=== PATIENT | female | born 1975 | race African-American/Black ===

== ENCOUNTER 2021-10-05 11:17 | Inpatient (IN) | payer BC, OTHER ==
[2021-10-05] MEDS ORDERED: SODIUM CHLORIDE 1,000 ML IV SCH (11:30)
[2021-10-05] MEDS ORDERED: ACETAMINOPHEN 1000 MG/100 ML BAG IVPB ONE (12:45)
[2021-10-05] MEDS ORDERED: ACETAMINOPHEN INJECTION 100 ML IVPB ONE (13:02)
[2021-10-05 13:09] LABS: BASO % 0.3 % (0-2.0); EOS % 2.2 % (0-4.5); HEMATOCRIT 36.5 % (32.4-45.2); HEMOGLOBIN 12.3 GM/dL (10.7-15.3); MCH 29.1 pg (25.7-33.7); MCHC 33.8 g/dl (32.0-36.0); MEAN PLT VOLUME 7.9 fl (7.5-11.1); MONO % 6.4 % (3.8-10.2); NEUT % 72.1 % (42.8-82.8); PLATELET COUNT 279 10^3/uL (134-434); RBC 4.25 M/mm3 (3.60-5.2); RDW 14.5 % (11.6-15.6); WHITE BLOOD COUNT 7.1 K/mm3 (4.0-10.0)
[2021-10-05 13:21] LABS: ACTIVATED PTT 33.5 SECONDS (25.2-36.5); INR 1.02 (0.83-1.09); PROTHROMBIN TIME (PATIENT) 11.7 SEC (9.7-13.0)
[2021-10-05 13:28] LABS: CALCIUM 8.9 mg/dL (8.5-10.1)
[2021-10-05 13:30] LABS: BLOOD UREA NITROGEN 10.1 mg/dL (7-18)
[2021-10-05 13:31] LABS: ALBUMIN 3.5 g/dl (3.4-5.0)
[2021-10-05 13:33] LABS: CREATININE 0.7 mg/dL (0.55-1.3)
[2021-10-05 13:34] LABS: TOT PROT 7.3 g/dl (6.4-8.2)
[2021-10-05 13:35] LABS: BILIRUBIN,TOTAL 0.5 mg/dL (0.2-1)
[2021-10-05] MEDS ORDERED: ASPIRIN COATED 81 MG TABLET.EC PO SCH (14:45)
[2021-10-05] MEDS ORDERED: ENOXAPARIN NA (PORCINE) 40 MG/0.4 ML DISP.SYRIN SQ ONE (15:16)
[2021-10-05] MEDS: ENOXAPARIN NA (PORCINE) 40 MG/0.4 ML DISP.SYRIN SQ SCH (15:20)
[2021-10-05] MEDS ORDERED: CLOPIDOGREL BISULFATE 75 MG TABLET (FP) ONE (16:42)
[2021-10-05] MEDS: CLOPIDOGREL BISULFATE 75 MG TABLET (FP) PO SCH (16:45)
[2021-10-05] MEDS ORDERED: morphine CARPU-JECT 4 MG/1 ML DISP.SYRIN IVPUSH PRN (16:45)
[2021-10-05] MEDS ORDERED: ACETAMINOPHEN 1000 MG/100 ML BAG IVPB PRN (16:45)
[2021-10-05] MEDS: INSULIN SLIDING SCALE (NOVOLOG) 1 VIAL SQ SCH ×3 (16:50→22:05)
[2021-10-05 19:08] LABS: PH,URINE 6.5 (5.0-8.0); URINE APPEARANCE CLEAR; URINE BILIRUBIN NEGATIVE (NEGATIVE); URINE COLOR YELLOW; URINE GLUCOSE (UA) NEGATIVE (NEGATIVE); URINE KETONE NEGATIVE (NEGATIVE); URINE LEUK ESTERASE NEGATIVE (NEGATIVE); URINE NITRITE NEGATIVE (NEGATIVE); URINE PROTEIN NEGATIVE (NEGATIVE); URINE UROBILINOGEN 0.2 mg/dL (0.2-1.0)
[2021-10-05] MEDS: ROSUVASTATIN CA 20 MG TABLET PO SCH (23:06)
[2021-10-06] MEDS: INSULIN SLIDING SCALE (NOVOLOG) 1 VIAL SQ SCH ×3 (06:32→16:49)
[2021-10-06 07:13] LABS: BASO % 0.6 % (0-2.0); EOS % 2.5 % (0-4.5); HEMATOCRIT 35.9 % (32.4-45.2); HEMOGLOBIN 12.6 GM/dL (10.7-15.3); LYMPH % 37.4 % (8-40); MCH 29.7 pg (25.7-33.7); MCHC 34.9 g/dl (32.0-36.0); MEAN CELL VOLUME 85.1 fl (80-96); MEAN PLT VOLUME 7.6 fl (7.5-11.1); MONO % 8.5 % (3.8-10.2); PLATELET COUNT 274 10^3/uL (134-434); RBC 4.22 M/mm3 (3.60-5.2); RDW 14.2 % (11.6-15.6); WHITE BLOOD COUNT 5.5 K/mm3 (4.0-10.0)
[2021-10-06 07:18] LABS: INR 1.1 (0.83-1.09); PROTHROMBIN TIME (PATIENT) 12.7 SEC (9.7-13.0)
[2021-10-06 07:21] LABS: ACTIVATED PTT 31.3 SECONDS (25.2-36.5)
[2021-10-06 07:45] LABS: CALCIUM 8.8 mg/dL (8.5-10.1)
[2021-10-06 07:46] LABS: ALBUMIN 3.2 g/dl (3.4-5.0); BLOOD UREA NITROGEN 9.1 mg/dL (7-18); MAGNESIUM 2.1 mg/dL (1.8-2.4)
[2021-10-06 07:49] LABS: CREATININE 0.7 mg/dL (0.55-1.3); PHOSPHOROUS 4.1 mg/dL (2.5-4.9)
[2021-10-06 07:50] LABS: BILIRUBIN,TOTAL 0.6 mg/dL (0.2-1); TOT PROT 6.6 g/dl (6.4-8.2)
[2021-10-06] MEDS: ENOXAPARIN NA (PORCINE) 40 MG/0.4 ML DISP.SYRIN SQ SCH (09:27)
[2021-10-06] MEDS: amLODIPine BESYLATE 10 MG TABLET (FP) PO SCH (09:27)
[2021-10-06] MEDS: CLOPIDOGREL BISULFATE 75 MG TABLET (FP) PO SCH (09:27)
[2021-10-06] MEDS: ROSUVASTATIN CA 20 MG TABLET PO SCH (21:17)
[2021-10-07] MEDS: INSULIN SLIDING SCALE (NOVOLOG) 1 VIAL SQ SCH ×4 (06:34→21:35)
[2021-10-07] MEDS: ENOXAPARIN NA (PORCINE) 40 MG/0.4 ML DISP.SYRIN SQ SCH (09:04)
[2021-10-07] MEDS: amLODIPine BESYLATE 10 MG TABLET (FP) PO SCH (09:04)
[2021-10-07] MEDS: CLOPIDOGREL BISULFATE 75 MG TABLET (FP) PO SCH (09:04)
[2021-10-07] MEDS ORDERED: ACETAMINOPHEN 325 MG TABLET (FP) PO PRN (15:27)
[2021-10-07] MEDS: ROSUVASTATIN CA 20 MG TABLET PO SCH (21:36)
[2021-10-07] MEDS: oxyCODONE HCL 5 MG TABLET PO PRN (21:36)
[2021-10-08] MEDS: oxyCODONE HCL 5 MG TABLET PO PRN (05:59)
[2021-10-08] MEDS: INSULIN SLIDING SCALE (NOVOLOG) 1 VIAL SQ SCH ×4 (06:41→22:56)
[2021-10-08] MEDS: ENOXAPARIN NA (PORCINE) 40 MG/0.4 ML DISP.SYRIN SQ SCH (09:36)
[2021-10-08] MEDS: amLODIPine BESYLATE 10 MG TABLET (FP) PO SCH (09:36)
[2021-10-08] MEDS: VALSARTAN 40 MG TABLET PO SCH (09:39)
[2021-10-08] MEDS: ROSUVASTATIN CA 20 MG TABLET PO SCH (22:56)
[2021-10-09] MEDS: INSULIN SLIDING SCALE (NOVOLOG) 1 VIAL SQ SCH ×4 (06:53→21:28)
[2021-10-09 08:26] LABS: BASO % 0.7 % (0-2.0); EOS % 2.9 % (0-4.5); HEMATOCRIT 38.3 % (32.4-45.2); LYMPH % 37.4 % (8-40); MCHC 34.1 g/dl (32.0-36.0); MEAN CELL VOLUME 85.1 fl (80-96); MEAN PLT VOLUME 7.8 fl (7.5-11.1); PLATELET COUNT 285 10^3/uL (134-434); RBC 4.49 M/mm3 (3.60-5.2); RDW 14.2 % (11.6-15.6)
[2021-10-09 09:38] LABS: BLOOD UREA NITROGEN 11.6 mg/dL (7-18); CALCIUM 9.1 mg/dL (8.5-10.1); MAGNESIUM 2.3 mg/dL (1.8-2.4)
[2021-10-09 09:41] LABS: CREATININE 0.7 mg/dL (0.55-1.3); PHOSPHOROUS 3.6 mg/dL (2.5-4.9)
[2021-10-09 09:43] LABS: BILIRUBIN,TOTAL 0.6 mg/dL (0.2-1); TOT PROT 6.9 g/dl (6.4-8.2)
[2021-10-09 09:44] LABS: ALBUMIN 3.4 g/dl (3.4-5.0)
[2021-10-09] MEDS: amLODIPine BESYLATE 10 MG TABLET (FP) PO SCH (09:44)
[2021-10-09] MEDS: ENOXAPARIN NA (PORCINE) 40 MG/0.4 ML DISP.SYRIN SQ SCH ×2 (09:44→09:50)
[2021-10-09] MEDS: VALSARTAN 40 MG TABLET PO SCH (09:44)
[2021-10-09] MEDS: ROSUVASTATIN CA 20 MG TABLET PO SCH (21:26)
[2021-10-10] MEDS: INSULIN SLIDING SCALE (NOVOLOG) 1 VIAL SQ SCH ×5 (06:05→22:18)
[2021-10-10] MEDS: ENOXAPARIN NA (PORCINE) 40 MG/0.4 ML DISP.SYRIN SQ SCH (09:02)
[2021-10-10] MEDS: VALSARTAN 40 MG TABLET PO SCH (09:02)
[2021-10-10] MEDS: amLODIPine BESYLATE 10 MG TABLET (FP) PO SCH (09:03)
[2021-10-10] MEDS ORDERED: ACETAMINOPHEN 325 MG TABLET (FP) PO PRN (16:45)
[2021-10-10] MEDS: ROSUVASTATIN CA 20 MG TABLET PO SCH (22:18)
[2021-10-11] MEDS: INSULIN SLIDING SCALE (NOVOLOG) 1 VIAL SQ SCH ×4 (06:32→21:24)
[2021-10-11 08:25] LABS: BASO % 0.8 % (0-2.0); HEMATOCRIT 36.6 % (32.4-45.2); HEMOGLOBIN 12.4 GM/dL (10.7-15.3); LYMPH % 36.3 % (8-40); MCH 28.9 pg (25.7-33.7); MCHC 33.8 g/dl (32.0-36.0); MEAN CELL VOLUME 85.6 fl (80-96); MEAN PLT VOLUME 7.9 fl (7.5-11.1); MONO % 7.9 % (3.8-10.2); PLATELET COUNT 252 10^3/uL (134-434); RBC 4.27 M/mm3 (3.60-5.2); RDW 14.1 % (11.6-15.6); WHITE BLOOD COUNT 6.1 K/mm3 (4.0-10.0)
[2021-10-11 08:45] LABS: BLOOD UREA NITROGEN 12.5 mg/dL (7-18); CALCIUM 8.9 mg/dL (8.5-10.1)
[2021-10-11 08:50] LABS: CREATININE 0.8 mg/dL (0.55-1.3)
[2021-10-11] MEDS: amLODIPine BESYLATE 10 MG TABLET (FP) PO SCH (10:13)
[2021-10-11] MEDS: VALSARTAN 40 MG TABLET PO SCH (10:13)
[2021-10-11] MEDS: ENOXAPARIN NA (PORCINE) 40 MG/0.4 ML DISP.SYRIN SQ SCH (10:14)
[2021-10-11] MEDS ORDERED: INSULIN (NOVOLOG) ASPART 100 UNITS/ML 10ML VIAL ONE (16:01)
[2021-10-11] MEDS: ROSUVASTATIN CA 20 MG TABLET PO SCH (21:13)
[2021-10-12] MEDS: INSULIN SLIDING SCALE (NOVOLOG) 1 VIAL SQ SCH ×4 (06:08→22:15)
[2021-10-12 08:36] LABS: BASO % 0.6 % (0-2.0); EOS % 3.4 % (0-4.5); HEMATOCRIT 36.6 % (32.4-45.2); HEMOGLOBIN 12.8 GM/dL (10.7-15.3); LYMPH % 31.4 % (8-40); MCH 29.4 pg (25.7-33.7); MCHC 34.9 g/dl (32.0-36.0); MEAN CELL VOLUME 84.3 fl (80-96); MEAN PLT VOLUME 7.9 fl (7.5-11.1); MONO % 7.4 % (3.8-10.2); NEUT % 57.2 % (42.8-82.8); PLATELET COUNT 250 10^3/uL (134-434); RBC 4.35 M/mm3 (3.60-5.2); RDW 13.9 % (11.6-15.6); WHITE BLOOD COUNT 6.8 K/mm3 (4.0-10.0)
[2021-10-12 09:02] LABS: BLOOD UREA NITROGEN 11.6 mg/dL (7-18); CALCIUM 8.9 mg/dL (8.5-10.1)
[2021-10-12 09:06] LABS: CREATININE 0.7 mg/dL (0.55-1.3)
[2021-10-12] MEDS: VALSARTAN 40 MG TABLET PO SCH (09:41)
[2021-10-12] MEDS: amLODIPine BESYLATE 10 MG TABLET (FP) PO SCH (09:41)
[2021-10-12] MEDS: ENOXAPARIN NA (PORCINE) 40 MG/0.4 ML DISP.SYRIN SQ SCH (09:41)
[2021-10-12] MEDS ORDERED: INSULIN (NOVOLOG) ASPART 100 UNITS/ML 10ML VIAL ONE (12:20)
[2021-10-12 13:54] VITALS: BMI 33.5
[2021-10-12] MEDS: ROSUVASTATIN CA 20 MG TABLET PO SCH (22:11)
[2021-10-12] MEDS: HYDROCORTISONE 1% TOPICAL CREAM 30 GM TUBE TP SCH (22:14)
[2021-10-12] MEDS: CLOTRIMAZOLE/BETAMET DIPROP 15 GM TUBE TP SCH (22:14)
[2021-10-13] MEDS: INSULIN SLIDING SCALE (NOVOLOG) 1 VIAL SQ SCH ×4 (06:09→21:36)
[2021-10-13] MEDS ORDERED: ceFAZolin SODIUM 1 GM VIAL ONE ×2 (07:21→17:51)
[2021-10-13] MEDS ORDERED: THROMBIN (BOVINE) 20,000 UNIT VIAL TP ONE (07:21)
[2021-10-13] MEDS ORDERED: HYDROmorphone HCl 2 MG/ML VIAL ONE (07:48)
[2021-10-13] MEDS ORDERED: MIDAZOLAM HCL 2 MG/2 ML SINGLE DOSE VIAL ONE ×3 (07:49)
[2021-10-13] MEDS ORDERED: ROCURONIUM BROMIDE 50 MG/5 ML SYRINGE ONE (07:49)
[2021-10-13] MEDS ORDERED: PROPOFOL 20 ML ONE ×19 (07:49→10:55)
[2021-10-13] MEDS ORDERED: BACITRACIN 15 GM TUBE TOPICAL OINTMENT ONE (07:56)
[2021-10-13] MEDS ORDERED: SUCCINYLCHOLINE CHLORIDE 200 MG/10 ML SYRINGE ONE (07:58)
[2021-10-13] MEDS ORDERED: ceFAZolin SODIUM 1 GM VIAL IVPB ONE ×2 (08:38→09:28)
[2021-10-13] MEDS ORDERED: ACETAMINOPHEN INJECTION 100 ML IVPB ONE (08:49)
[2021-10-13] MEDS ORDERED: DEXMEDETOMIDINE HCL 200 MCG/2 ML IVPB ONE (08:49)
[2021-10-13] MEDS ORDERED: KETAMINE HCL 200 MG/20 ML VIAL ONE (08:52)
[2021-10-13] MEDS: VALSARTAN 40 MG TABLET PO SCH ×2 (09:04→18:01)
[2021-10-13] MEDS: amLODIPine BESYLATE 10 MG TABLET (FP) PO SCH ×2 (09:04→18:01)
[2021-10-13] MEDS: CLOTRIMAZOLE/BETAMET DIPROP 15 GM TUBE TP SCH ×2 (09:04→21:29)
[2021-10-13] MEDS ORDERED: THROMBIN (BOVINE) 5,000 UNIT VIAL TP ONE (09:21)
[2021-10-13] MEDS: HYDROCORTISONE 1% TOPICAL CREAM 30 GM TUBE TP SCH ×2 (09:33→21:28)
[2021-10-13] MEDS ORDERED: ONDANSETRON 4 MG/2 ML VIAL IVPUSH PRN ×2 (12:22→14:30)
[2021-10-13] MEDS ORDERED: LACTATED RINGERS SOLUTION 1,000 ML IV SCH (12:30)
[2021-10-13] MEDS ORDERED: ACETAMINOPHEN 325 MG TABLET (FP) PO PRN (14:30)
[2021-10-13] MEDS ORDERED: DEXTROSE 5%-WATER - 50 ML IVPB ONE (17:51)
[2021-10-13] MEDS: CEFAZOLIN 1 GM in DEXTROSE 5%-WATER - 1 GM/50 ML IVPB IVPB SCH (17:59)
[2021-10-13] MEDS ORDERED: CEFAZOLIN 1 GM in DEXTROSE 5%-WATER - 1 GM/50 ML IVPB IVPB SCH (18:00)
[2021-10-13] MEDS: LACTATED RINGERS SOLUTION 1,000 ML IV SCH (18:02)
[2021-10-13 18:13] LABS: BASO % 0.2 % (0-2.0); HEMATOCRIT 38.3 % (32.4-45.2); HEMOGLOBIN 13.1 GM/dL (10.7-15.3); LYMPH % 5.7 % (8-40); MCH 29.3 pg (25.7-33.7); MCHC 34.1 g/dl (32.0-36.0); MEAN CELL VOLUME 85.8 fl (80-96); MEAN PLT VOLUME 8.1 fl (7.5-11.1); NEUT % 93.1 % (42.8-82.8); PLATELET COUNT 251 10^3/uL (134-434); RBC 4.47 M/mm3 (3.60-5.2); WHITE BLOOD COUNT 9.8 K/mm3 (4.0-10.0)
[2021-10-13 18:29] LABS: CHLORIDE 106 mmol/L (98-107); SODIUM 138 mmol/L (136-145)
[2021-10-13 18:32] LABS: ANION GAP 7 MMOL/L (8-16); BLOOD UREA NITROGEN 15.1 mg/dL (7-18); CALCIUM 9.3 mg/dL (8.5-10.1); CO2 25 mmol/L (21-32); GLUCOSE,RANDOM 236 mg/dL (74-106)
[2021-10-13 18:36] LABS: CREATININE 0.9 mg/dL (0.55-1.3)
[2021-10-13 19:32] LABS: ANISOCYTOSIS 1+; MACROCYTOSIS 0; PLATELET ESTIMATE NORMAL
[2021-10-13] MEDS: ROSUVASTATIN CA 20 MG TABLET PO SCH (21:28)
[2021-10-14] MEDS ORDERED: DEXTROSE 5%-WATER - 50 ML IVPB ONE ×2 (01:31→09:18)
[2021-10-14] MEDS ORDERED: ceFAZolin SODIUM 1 GM VIAL ONE ×2 (01:31→09:18)
[2021-10-14] MEDS: LACTATED RINGERS SOLUTION 1,000 ML IV SCH ×3 (01:46→16:26)
[2021-10-14] MEDS: CEFAZOLIN 1 GM in DEXTROSE 5%-WATER - 1 GM/50 ML IVPB IVPB SCH ×2 (01:48→09:20)
[2021-10-14] MEDS: ACETAMINOPHEN 325 MG TABLET (FP) PO PRN ×3 (01:50→14:13)
[2021-10-14] MEDS: INSULIN SLIDING SCALE (NOVOLOG) 1 VIAL SQ SCH ×4 (06:02→21:18)
[2021-10-14 09:02] LABS: BASO % 0.4 % (0-2.0); EOS % 0.1 % (0-4.5); HEMATOCRIT 36.7 % (32.4-45.2); HEMOGLOBIN 12.3 GM/dL (10.7-15.3); LYMPH % 12.3 % (8-40); MCH 28.9 pg (25.7-33.7); MCHC 33.6 g/dl (32.0-36.0); MEAN CELL VOLUME 86.1 fl (80-96); MEAN PLT VOLUME 8.5 fl (7.5-11.1); MONO % 6.7 % (3.8-10.2); NEUT % 80.5 % (42.8-82.8); PLATELET COUNT 258 10^3/uL (134-434); RBC 4.26 M/mm3 (3.60-5.2); RDW 14.2 % (11.6-15.6); WHITE BLOOD COUNT 13.4 K/mm3 (4.0-10.0)
[2021-10-14] MEDS: amLODIPine BESYLATE 10 MG TABLET (FP) PO SCH (09:20)
[2021-10-14] MEDS: VALSARTAN 40 MG TABLET PO SCH (09:20)
[2021-10-14] MEDS: HYDROCORTISONE 1% TOPICAL CREAM 30 GM TUBE TP SCH ×2 (09:21→21:18)
[2021-10-14] MEDS: CLOTRIMAZOLE/BETAMET DIPROP 15 GM TUBE TP SCH ×2 (09:30→21:18)
[2021-10-14 09:45] LABS: BLOOD UREA NITROGEN 11.8 mg/dL (7-18); CALCIUM 9.3 mg/dL (8.5-10.1)
[2021-10-14 09:48] LABS: CREATININE 0.7 mg/dL (0.55-1.3)
[2021-10-14] MEDS ORDERED: INSULIN (NOVOLOG) ASPART 100 UNITS/ML 10ML VIAL ONE (10:41)
[2021-10-14] MEDS: ROSUVASTATIN CA 20 MG TABLET PO SCH (21:17)
[2021-10-15] MEDS: INSULIN SLIDING SCALE (NOVOLOG) 1 VIAL SQ SCH ×4 (06:15→21:28)
[2021-10-15 09:17] LABS: BASO % 0.6 % (0-2.0); EOS % 0.9 % (0-4.5); HEMATOCRIT 35.9 % (32.4-45.2); HEMOGLOBIN 12.3 GM/dL (10.7-15.3); LYMPH % 24.4 % (8-40); MCH 29.3 pg (25.7-33.7); MCHC 34.1 g/dl (32.0-36.0); MEAN CELL VOLUME 85.8 fl (80-96); MEAN PLT VOLUME 8.2 fl (7.5-11.1); MONO % 8.2 % (3.8-10.2); NEUT % 65.9 % (42.8-82.8); PLATELET COUNT 244 10^3/uL (134-434); RBC 4.19 M/mm3 (3.60-5.2); RDW 14.4 % (11.6-15.6); WHITE BLOOD COUNT 8.9 K/mm3 (4.0-10.0)
[2021-10-15] MEDS: HYDROCORTISONE 1% TOPICAL CREAM 30 GM TUBE TP SCH ×2 (09:17→21:27)
[2021-10-15] MEDS: CLOTRIMAZOLE/BETAMET DIPROP 15 GM TUBE TP SCH ×2 (09:17→21:27)
[2021-10-15] MEDS: amLODIPine BESYLATE 10 MG TABLET (FP) PO SCH (09:18)
[2021-10-15] MEDS: VALSARTAN 40 MG TABLET PO SCH (09:19)
[2021-10-15 09:22] LABS: CALCIUM 8.7 mg/dL (8.5-10.1)
[2021-10-15 09:23] LABS: BLOOD UREA NITROGEN 7.4 mg/dL (7-18)
[2021-10-15] MEDS: ENOXAPARIN NA (PORCINE) 40 MG/0.4 ML DISP.SYRIN SQ SCH (09:23)
[2021-10-15 09:26] LABS: CREATININE 0.6 mg/dL (0.55-1.3)
[2021-10-15] MEDS: LACTATED RINGERS SOLUTION 1,000 ML IV SCH (17:16)
[2021-10-15] MEDS: ROSUVASTATIN CA 20 MG TABLET PO SCH (21:27)
[2021-10-16] MEDS: INSULIN SLIDING SCALE (NOVOLOG) 1 VIAL SQ SCH ×4 (06:57→21:24)
[2021-10-16] MEDS: HYDROCORTISONE 1% TOPICAL CREAM 30 GM TUBE TP SCH ×2 (10:39→21:26)
[2021-10-16] MEDS: amLODIPine BESYLATE 10 MG TABLET (FP) PO SCH (10:40)
[2021-10-16] MEDS: CLOTRIMAZOLE/BETAMET DIPROP 15 GM TUBE TP SCH ×2 (10:40→21:26)
[2021-10-16] MEDS: VALSARTAN 40 MG TABLET PO SCH (10:41)
[2021-10-16] MEDS: ENOXAPARIN NA (PORCINE) 40 MG/0.4 ML DISP.SYRIN SQ SCH (10:42)
[2021-10-16] MEDS: LACTATED RINGERS SOLUTION 1,000 ML IV SCH (18:43)
[2021-10-16] MEDS: ROSUVASTATIN CA 20 MG TABLET PO SCH (21:25)
[2021-10-16] MEDS: ACETAMINOPHEN 325 MG TABLET (FP) PO PRN (22:50)
[2021-10-17] MEDS: LACTATED RINGERS SOLUTION 1,000 ML IV SCH (05:13)
[2021-10-17] MEDS: INSULIN SLIDING SCALE (NOVOLOG) 1 VIAL SQ SCH ×2 (06:17→12:08)
[2021-10-17 09:54] VITALS: BP 154/81; PULSE 81; TEMP 98
[2021-10-17 10:12] LABS: BASO % 0.7 % (0-2.0); HEMATOCRIT 35.7 % (32.4-45.2); LYMPH % 22.8 % (8-40); MCH 28.7 pg (25.7-33.7); MCHC 33.7 g/dl (32.0-36.0); MEAN CELL VOLUME 85.4 fl (80-96); MEAN PLT VOLUME 8.2 fl (7.5-11.1); MONO % 8.3 % (3.8-10.2); NEUT % 65.2 % (42.8-82.8); PLATELET COUNT 263 10^3/uL (134-434); RBC 4.18 M/mm3 (3.60-5.2); RDW 14.3 % (11.6-15.6); WHITE BLOOD COUNT 7.1 K/mm3 (4.0-10.0)
[2021-10-17] MEDS: amLODIPine BESYLATE 10 MG TABLET (FP) PO SCH (10:24)
[2021-10-17] MEDS: VALSARTAN 40 MG TABLET PO SCH (10:25)
[2021-10-17] MEDS: ENOXAPARIN NA (PORCINE) 40 MG/0.4 ML DISP.SYRIN SQ SCH (10:25)
[2021-10-17] MEDS: HYDROCORTISONE 1% TOPICAL CREAM 30 GM TUBE TP SCH (10:26)
[2021-10-17] MEDS: CLOTRIMAZOLE/BETAMET DIPROP 15 GM TUBE TP SCH (10:27)
[2021-10-17] MEDS: ACETAMINOPHEN 325 MG TABLET (FP) PO PRN (10:33)
[2021-10-17 10:34] LABS: CREATININE 0.6 mg/dL (0.55-1.3)
== END 2021-10-17 17:59 | disposition home or self-care (01) | DRG 472 ==
LOC: JER 11:17 → JERBED 16:21 → J4W 22:28 → OBSVTOIN 10-08 13:35 → J8W 10-10 16:33
PROVIDERS: ADMIT Internal Medicine; ATTEND Internal Medicine
PROC: 0RT30ZZ Resection of Cervical Vertebral Disc, Open Approach (ICD-10-PCS; 2021-10-13)
PROC: 00NW0ZZ Release Cervical Spinal Cord, Open Approach (ICD-10-PCS; 2021-10-13)
PROC: 01N10ZZ Release Cervical Nerve, Open Approach (ICD-10-PCS; 2021-10-13)
PROC: 4A11X4G Monitoring of Peripheral Nervous Electrical Activity, Intraoperative, External Approach (ICD-10-PCS; 2021-10-13)
PROC: 0RG20A0 Fusion of 2 or more Cervical Vertebral Joints with Interbody Fusion Device, Anterior Approach, Anterior Column, Open Approach (ICD-10-PCS; principal; 2021-10-13 08:00)
DX: M50.20 Other cervical disc displacement, unspecified cervical region (principal); G95.20 Unspecified cord compression; I69.351 Hemiplegia and hemiparesis following cerebral infarction affecting right dominant side; M50.023 Cervical disc disorder at C6-C7 level with myelopathy; M50.123 Cervical disc disorder at C6-C7 level with radiculopathy; M48.02 Spinal stenosis, cervical region; F41.8 Other specified anxiety disorders; I10 Essential (primary) hypertension; E11.9 Type 2 diabetes mellitus without complications; E78.5 Hyperlipidemia, unspecified; F17.210 Nicotine dependence, cigarettes, uncomplicated
CPT/HCPCS: 36415; 70450-TC; 70551-TC; 71045-TC-FY; 72040-TC; 72125-TC; 72141-TC; 80048; 80053; 80061; 81003; 82550; 82962; 83036; 83735; 84100; 84443; 84484; 84702; 84703; 85025; 85610; 85651; 85730; 86850; 86900; 86901; 93005; 93010; 93306-TC; 94010; 94760; 97116-GP; 97161-GP; 99285-25; C9803-CS; G0378; U0003; U0005

== ENCOUNTER 2023-07-10 10:35 | Observation (INO) | payer BC, OTHER ==
[2023-07-10] MEDS ORDERED: DEXAMETHASONE SOD PHOSPHATE 10 MG/1 ML VIAL ONE (12:41)
[2023-07-10] MEDS ORDERED: ACETAMINOPHEN 325 MG TABLET (FP) ONE (12:41)
[2023-07-10] MEDS: ACETAMINOPHEN 325 MG TABLET (FP) PO ONE (12:47)
[2023-07-10 12:48] LABS: BASO % 0.5 % (0-2.0); EOS % 2.4 % (0-4.5); HEMATOCRIT 41.3 % (32.4-45.2); HEMOGLOBIN 13.8 GM/dL (10.7-15.3); LYMPH % 26.9 % (8-40); MCH 28.7 pg (25.7-33.7); MCHC 33.5 g/dl (32.0-36.0); MEAN CELL VOLUME 85.8 fl (80-96); MEAN PLT VOLUME 7.8 fl (7.5-11.1); MONO % 5.9 % (3.8-10.2); NEUT % 64.3 % (42.8-82.8); PLATELET COUNT 306 10^3/uL (134-434); RBC 4.82 M/mm3 (3.60-5.2); RDW 14.9 % (11.6-15.6); WHITE BLOOD COUNT 7.3 K/mm3 (4.0-10.0)
[2023-07-10] MEDS: DEXAMETHASONE SOD PHOSPHATE 10 MG/1 ML VIAL IVPUSH ONE (12:49)
[2023-07-10 12:51] LABS: INR 0.98 (0.83-1.09); PROTHROMBIN TIME (PATIENT) 11.4 SEC (9.7-13.0)
[2023-07-10 12:54] LABS: ACTIVATED PTT 28.6 SECONDS (25.2-36.5)
[2023-07-10 13:21] LABS: CALCIUM 9.4 mg/dL (8.5-10.1)
[2023-07-10 13:22] LABS: ALBUMIN 3.7 g/dl (3.4-5.0); BLOOD UREA NITROGEN 14.9 mg/dL (7-18)
[2023-07-10 13:25] LABS: CREATININE 0.9 mg/dL (0.55-1.3)
[2023-07-10 13:27] LABS: BILIRUBIN,TOTAL 0.5 mg/dL (0.2-1); TOT PROT 7.3 g/dl (6.4-8.2)
[2023-07-10] MEDS ORDERED: ACETAMINOPHEN 325 MG TABLET (FP) PO PRN (17:24)
[2023-07-10] MEDS: INSULIN ASPART SLIDING SCALE (NOVOLOG) 1 VIAL SQ SCH (17:38)
[2023-07-10] MEDS: SODIUM CHLORIDE 1,000 ML IV SCH (17:39)
[2023-07-11 01:46] VITALS: RESP 18; BMI 33.3
[2023-07-11 08:50] LABS: HEMATOCRIT 42.5 % (32.4-45.2); HEMOGLOBIN 14.1 GM/dL (10.7-15.3); MCH 28.5 pg (25.7-33.7); MCHC 33.1 g/dl (32.0-36.0); MEAN PLT VOLUME 7.9 fl (7.5-11.1); PLATELET COUNT 298 10^3/uL (134-434); RBC 4.94 M/mm3 (3.60-5.2); RDW 14.6 % (11.6-15.6); WHITE BLOOD COUNT 9.9 K/mm3 (4.0-10.0)
[2023-07-11 09:12] LABS: POTASSIUM 4.2 mmol/L (3.5-5.1)
[2023-07-11 09:14] LABS: CALCIUM 9.8 mg/dL (8.5-10.1)
[2023-07-11 09:15] LABS: ALBUMIN 3.6 g/dl (3.4-5.0); BLOOD UREA NITROGEN 14.4 mg/dL (7-18); MAGNESIUM 2.2 mg/dL (1.8-2.4)
[2023-07-11 09:18] LABS: CREATININE 0.8 mg/dL (0.55-1.3); PHOSPHOROUS 2.9 mg/dL (2.5-4.9)
[2023-07-11 09:19] LABS: BILIRUBIN,TOTAL 0.5 mg/dL (0.2-1); TOT PROT 7.6 g/dl (6.4-8.2)
[2023-07-11] MEDS: amLODIPine BESYLATE 10 MG TABLET (FP) PO SCH (09:34)
[2023-07-11] MEDS ORDERED: DEXAMETHASONE SOD PHOSPHATE 4 MG/1 ML VIAL IVPUSH SCH (10:00)
[2023-07-11] MEDS: GABAPENTIN 300 MG CAPSULE PO SCH (13:24)
[2023-07-11 15:17] VITALS: BP 147/77; PULSE 77; TEMP 98.9
[2023-07-11] MEDS ORDERED: ROSUVASTATIN CA 20 MG TABLET PO SCH (22:00)
== END 2023-07-11 17:55 | disposition home or self-care (01) ==
LOC: JER 10:35 → JERBED 15:52 → INTOOBSV 15:52 → UNDOADMOB 15:52 → JERBED 07-11 00:51 → J5S 07-11 00:51 → JERBED 07-11 09:30 → J5S 07-11 09:30
PROVIDERS: ADMIT Internal Medicine; ATTEND Internal Medicine
PROC: 3E033NZ Introduction of Analgesics, Hypnotics, Sedatives into Peripheral Vein, Percutaneous Approach (ICD-10-PCS; principal; 2023-07-11)
PROC: 3E0337Z Introduction of Electrolytic and Water Balance Substance into Peripheral Vein, Percutaneous Approach (ICD-10-PCS; 2023-07-11)
DX: M54.2 Cervicalgia (principal); M96.0 Pseudarthrosis after fusion or arthrodesis; M48.9 Spondylopathy, unspecified; M62.81 Muscle weakness (generalized); E11.9 Type 2 diabetes mellitus without complications; R20.2 Paresthesia of skin; R20.0 Anesthesia of skin; I10 Essential (primary) hypertension; I69.854 Hemiplegia and hemiparesis following other cerebrovascular disease affecting left non-dominant side; E78.5 Hyperlipidemia, unspecified; Z91.012 Allergy to eggs; Z91.018 Allergy to other foods
CPT/HCPCS: 36415; 70450-TC; 72050-TC-FY; 72125-TC; 72141-TC; 80053; 82962; 83735; 84100; 85025; 85027; 85610; 85730; 86850; 86900; 86901; 93005; 93010; 96361; 96374; 99285-25; G0378; J1100